=== PATIENT | female | born 1955 | race Caucasian/White ===

== ENCOUNTER → 2016-06-28 | Outpatient (CLI) | payer MEDICARE ==
[~2016-06-28] MED LIST: ADVAIR 250/501 EA; ADVAIR 250/501 EA INH; ATOXIMETIN-B1 CAP PO; BUSPAR10 MG PO; CIPRO500 MG PO; CLARITIN10 MG PO; CLEOCIN HCL150 MG PO; EPA FISH OIL1000 MG PO; FLAX OIL1000 MG; FLONASE 0.05% 121 EA; HUMALOG100 U/ML SC; HUMULIN R U-500 U/ML SC; HYDROCODONE BIT1 T11 PO; LORAZEPAM0.5 MG PO; M2 CHROMIUM500 MCG; METFORMIN1000 MG PO; MOTRIN,RUFEN800 MG; MOTRIN800 MG PO; NEURONTIN300 MG PO; PAXIL40 MG PO; PRAVACHOL40 MG PO; RESTORIL15 MG PO; ZIAC 10 MG-6.251 TAB PO; [UNRECOGNIZED DRUG - OTHER] PO
[2016-06-28 10:39] LABS: BASO % 0.4 % (0.0-1.0); EOS # 0.1 10*3/uL (0.0-0.4); EOS % 1.6 % (1.0-4.0); HEMATOCRIT 39.3 % (37.0-47.0); HEMOGLOBIN 13.4 g/dl (12.0-16.0); LYMPH # 1.4 10*3/uL (1.3-4.4); MEAN CELL VOLUME 98.7 fl (81.0-99.0); MEAN CORPUSCULAR HGB 33.7 pg (27.0-31.0); MEAN CORPUSCULAR HGB CONC 34.1 g/dl (33.0-37.0); MEAN PLATELET VOLUME 10.6 fl (9.6-12.3); MONO # 0.5 10*3/uL (0.1-1.0); MONO % 6.8 % (3.0-9.0); NEUT % 70.8 % (47.0-73.0); PLATELET COUNT AUTOMATED 205 10*3/uL (130-400); RED BLOOD COUNT 3.98 10*6/uL (4.10-5.10); RED CELL DISTRI WIDTH 13.7 % (0-14.5); WHITE BLOOD COUNT 7.1 10*3/uL (4.8-10.8)
[2016-06-28 11:05] LABS: HEMOGLOBIN A1c 7.7 % (4.8-5.6)
[2016-06-28 11:15] LABS: ALBUMIN 3.3 gm/dl (3.1-4.5); ALKALINE PHOSPHATASE 73 U/L (45-117); BILIRUBIN, DIRECT < 0.1 mg/dL (0.0-0.2); BILIRUBIN, TOTAL 0.4 mg/dl (0.2-1.0); BUN 15 mg/dl (7-24); CARBON DIOXIDE 29 mmol/L (21-32); CHLORIDE 100 mmol/L (98-107); CHOLESTEROL 179 mg/dL (<200); EST GLOM FILT AFRICAN AMERICAN 51 ml/min; GLUCOSE 185 mg/dL (65-99); HDL CHOLESTEROL 36 mg/dl (40-60); POTASSIUM 3.3 mmol/L (3.5-5.1); SGOT/AST 31 IU/L (3-35); SGPT/ALT 31 U/L (12-78); SODIUM 142 mmol/L (136-145); THYROXINE (T4) TOTAL 10.1 ug/dl (4.8-13.9); TOTAL PROTEIN 7.6 gm/dL (6.4-8.2); TRIGLYCERIDES 512 mg/dl (<150)
== END | disposition home or self-care (01) ==
LOC: LAB 10:19
PROVIDERS: Family Medicine
DX: E11.9 Type 2 diabetes mellitus without complications (principal); E78.00 Pure hypercholesterolemia, unspecified; R53.83 Other fatigue; E55.9 Vitamin D deficiency, unspecified

== ENCOUNTER 2016-08-20 14:29 | Emergency (ER) | payer MEDICARE ==
[~2016-08-20] VITALS: Wt 127.0 kg
[2016-08-20] MEDS ORDERED: POTASSIUM CHLO10 ME4 PO (14:31)
[2016-08-20] MEDS ORDERED: ATENOLOL AND CH1 TAB PO (14:33)
== END 2016-08-20 17:36 | disposition home or self-care (01) ==
LOC: ED 14:29
DX: R60.9 Edema, unspecified (principal); R03.0 Elevated blood-pressure reading, without diagnosis of hypertension; Z79.899 Other long term (current) drug therapy; Z88.1 Allergy status to other antibiotic agents; Z88.8 Allergy status to other drugs, medicaments and biological substances

== ENCOUNTER → 2017-01-05 | Outpatient (CLI) | payer MEDICARE, OTHER ==
[~2017-01-05] MED LIST changes: +ATENOLOL AND CH1 TAB PO; +POTASSIUM CHLO10 ME4 PO
[2017-01-05 11:05] LABS: ALBUMIN 3.3 gm/dl (3.1-4.5); CREATININE 1.24 mg/dL (0.55-1.02); POTASSIUM 3.8 mmol/L (3.5-5.1); TOTAL PROTEIN 7.6 gm/dL (6.4-8.2)
[2017-01-06 10:04] LABS: CREATININE,URINE 60.6 mg/dL (Not Estab.); MICRO ALBUMIN/CRE RATIO 53.6 (0.0-30.0)
== END | disposition home or self-care (01) ==
LOC: LAB 10:19
PROVIDERS: Nurse Practitioner Family
DX: E11.65 Type 2 diabetes mellitus with hyperglycemia (principal); E11.49 Type 2 diabetes mellitus with other diabetic neurological complication; E55.9 Vitamin D deficiency, unspecified

== ENCOUNTER → 2017-03-31 | Outpatient (CLI) | payer MEDICARE ==
[2017-03-31 16:47] LABS: BASO % 0.4 % (0.0-1.0); EOS # 0.1 10*3/uL (0.0-0.4); EOS % 1.3 % (1.0-4.0); HEMATOCRIT 37.4 % (37.0-47.0); HEMOGLOBIN 12.8 g/dl (12.0-16.0); LYMPH # 2.1 10*3/uL (1.3-4.4); LYMPH % 20.4 % (27.0-41.0); MEAN CELL VOLUME 95.9 fl (81.0-99.0); MEAN CORPUSCULAR HGB 32.8 pg (27.0-31.0); MEAN CORPUSCULAR HGB CONC 34.2 g/dl (33.0-37.0); MONO # 0.9 10*3/uL (0.1-1.0); MONO % 8.7 % (3.0-9.0); NEUT % 68.8 % (47.0-73.0); PLATELET COUNT AUTOMATED 207 10*3/uL (130-400); RED CELL DISTRI WIDTH 13.9 % (0-14.5); WHITE BLOOD COUNT 10.1 10*3/uL (4.8-10.8)
== END | disposition home or self-care (01) ==
LOC: LAB 15:55
PROVIDERS: Family Medicine
DX: I51.7 Cardiomegaly (principal); I10 Essential (primary) hypertension; E11.9 Type 2 diabetes mellitus without complications; Z87.891 Personal history of nicotine dependence

== ENCOUNTER 2017-05-22 17:17 | Emergency (ER) | payer MEDICARE, OTHER ==
[~2017-05-22] VITALS: Ht 167.6 cm; Wt 113.4 kg
[2017-05-22] MEDS ORDERED: HYCODAN/HYDROMET5 ML PO (20:06)
[2017-05-22] MEDS ORDERED: ZITHROMAX250 MG PO (20:06)
[2017-05-22] MEDS ORDERED: PROAIR HFA8.5 GM INH (20:06)
== END 2017-05-22 18:53 | disposition home or self-care (01) ==
LOC: ED 17:17
DX: J40 Bronchitis, not specified as acute or chronic (principal); I10 Essential (primary) hypertension; E11.9 Type 2 diabetes mellitus without complications; E78.00 Pure hypercholesterolemia, unspecified; Z88.1 Allergy status to other antibiotic agents; Z79.899 Other long term (current) drug therapy; Z79.4 Long term (current) use of insulin

== ENCOUNTER → 2017-06-22 | Outpatient (CLI) | payer MEDICARE ==
[~2017-06-22] MED LIST changes: +HYCODAN/HYDROMET5 ML PO; +PROAIR HFA8.5 GM INH; +ZITHROMAX250 MG PO
== END | disposition home or self-care (01) ==
LOC: RAD 11:45
DX: M48.061 Spinal stenosis, lumbar region without neurogenic claudication (principal); G95.20 Unspecified cord compression; G89.29 Other chronic pain

== ENCOUNTER 2017-06-30 19:18 | Emergency (ER) | payer MEDICARE ==
[~2017-06-30] VITALS: Ht 180.3 cm; Wt 127.0 kg
[2017-06-30] MEDS ORDERED: CLINDAMYCIN HC300 MG PO (19:40)
[2017-06-30] MEDS ORDERED: Peridex 473 ML473 ML PO (19:40)
== END 2017-06-30 19:47 | disposition home or self-care (01) ==
LOC: ED 19:18
DX: K04.7 Periapical abscess without sinus (principal); Z79.899 Other long term (current) drug therapy; Z79.4 Long term (current) use of insulin; Z88.1 Allergy status to other antibiotic agents; Z88.8 Allergy status to other drugs, medicaments and biological substances

== ENCOUNTER → 2017-10-16 | Outpatient (CLI) | payer MEDICARE, OTHER ==
[~2017-10-16] MED LIST changes: +CLINDAMYCIN HC300 MG PO; +Peridex 473 ML473 ML PO
== END | disposition home or self-care (01) ==
LOC: US 10-09 16:00
DX: N28.89 Other specified disorders of kidney and ureter (principal)

== ENCOUNTER → 2018-01-16 | Outpatient (CLI) | payer MEDICARE, OTHER | END | disposition home or self-care (01) | LOC: MAMMO 12-21 11:00 | DX: Z12.31 Encounter for screening mammogram for malignant neoplasm of breast (principal) ==

== ENCOUNTER 2018-08-09 18:53 | Inpatient (IN) | payer OTHER ==
[~2018-08-09] VITALS: Ht 165.1 cm; Wt 137.1 kg
--- NOTE | ~2018-08-09 | EKG ---
[place], [place] ELECTROCARDIOGRAM REPORT NAME: ARIANNA HESS UNIT #: [id number] ROOM: 424 DOCTOR: LIZ DRAFT REPORT BIRTHDATE: [birth year] [facility] Test Date: 2018-08-10 Test Time: 00:50:13 Pat Name: ARIANNA HESS Department: Room: 424 Gender: F Food Service Clerk: Kiersten Angel : 1955 Requested By: ANDREW TORRES Order Number: [id number] Reading MD: Ha Kelly MD Measurements Intervals [place] Rate: 103 P: 51 KS: 164 QRS: -3 QRSD: 82 T: 89 QT: 369 QTc: 483 Interpretive Statements Sinus tachycardia Minimal ST depression, lateral leads Electronically Signed On 08-13-2018 14:29:27 PDT by Ha Kelly MD CM:EKGRPT:ELECTROCARDIOGRAM REPORT 0050 1429 ANDREW COLON DRAFT REPORT ANDREW TORRES DO
--- NOTE | ~2018-08-09 | EKG ---
[place], [place] ELECTROCARDIOGRAM REPORT NAME: ARIANNA HESS UNIT #: [id number] ROOM: 424 DOCTOR: LIZ DRAFT REPORT BIRTHDATE: [birth year] [facility] Test Date: 2018-08-09 Test Time: 19:04:03 Pat Name: ARIANNA HESS Department: Room: 424 Gender: F Barrel Filler Head: Kiersten Angel : 1955 Requested By: ANDREW TORRES Order Number: [id number] Reading MD: Ha Kelly MD Measurements Intervals [place] Rate: 102 P: 72 GA: 159 QRS: -9 QRSD: 80 T: 96 QT: 353 QTc: 460 Interpretive Statements Sinus tachycardia Low voltage, precordial leads Probable LVH with secondary repol abnrm Electronically Signed On 08-13-2018 14:23:46 PDT by Ha Kelly MD CM:EKGRPT:ELECTROCARDIOGRAM REPORT 1423 ANDREW COLON DRAFT REPORT ANDREW TORRES DO
--- NOTE | ~2018-08-09 | EKG ---
[place], [place] ELECTROCARDIOGRAM REPORT NAME: ARIANNA HESS UNIT #: [id number] ROOM: 424 DOCTOR: LIZ DRAFT REPORT BIRTHDATE: [birth year] [facility] Test Date: 2018-08-09 Test Time: 21:35:33 Pat Name: ARIANNA HESS Department: Room: 424 Gender: F Log Marker: Kiersten Angel : 1955 Requested By: ANDREW TORRES Order Number: [id number] Reading MD: Ha Kelly MD Measurements Intervals [place] Rate: 98 P: 51 [place]: 154 QRS: -8 QRSD: 85 T: 70 QT: 362 QTc: 463 Interpretive Statements Sinus rhythm Low voltage, precordial leads LVH by voltage Baseline wander in lead(s) V4 Electronically Signed On 08-13-2018 14:25:35 PDT by Ha Kelly MD CM:EKGRPT:ELECTROCARDIOGRAM REPORT 34 1425 ANDREW COLON DRAFT REPORT ANDREW TORRES DO
--- NOTE | ~2018-08-09 | CON ---
[place], [place] REPORT OF CONSULTATION NAME: ARIANNA HESS UNIT #: [id number] ROOM: 424 DOCTOR: JENNY MADRID MD BIRTHDATE: [birth year] DOS: 08/10/2018 CARDIOLOGY CONSULT REASON FOR CONSULTATION: Chest pain. HISTORY OF PRESENT ILLNESS: The patient is a 63-year-old patient with history of hypertension, diabetes, morbid obesity, dyslipidemia, came to the Emergency Room for pressure-like sensation in her chest. This pain came at rest, lasted about 2 minutes. There is no radiation. She could not describe much about her chest pain other than like a pressure-like sensation lasted for 2 minutes. No associated symptoms such as nausea, vomiting or diaphoresis. She did have some diarrhea for a few days and also has some foul-smelling urine and burning on urination, but no fever and chills. No PND or orthopnea. No heart palpitations, no dizziness, no syncope. No nausea, vomiting, diarrhea. No bladder symptoms. At the time of examination, the patient is alert and comfortable. Denies any further chest pain, shortness of breath. REVIEW OF SYSTEMS: Review of 10 systems negative except as mentioned above. PAST MEDICAL HISTORY: 1. Hypertension. 2. Diabetes type 2. 3. Dyslipidemia. 4. Morbid obesity. 5. Neuropathy. 6. Insomnia. 7. Depression. PAST SURGICAL HISTORY: History of cholecystectomy and shoulder replacement. SOCIAL HISTORY: The patient does not smoke, does not drink, does not use illicit drugs. FAMILY HISTORY: Father . Mother , had a cervical cancer. ALLERGIES: THE PATIENT IS ALLERGIC TO LEVAQUIN AND BACTRIM. HOME MEDICATIONS: Reviewed. REVIEW OF THE DIAGNOSTIC TESTS: EKG reviewed. CBC, chemistry reviewed. Creatinine of 1.22, magnesium normal. Lipids and TSH noted. The patient has high triglycerides. The cardiac troponins are normal. IMPRESSION: 1. Chest pain, myocardial infarction ruled out. 2. Hypertension. 3. Sinus tachycardia. 4. Diabetes type 2. 5. Morbid obesity. [place], [place] REPORT OF CONSULTATION NAME: ARIANNA HESS UNIT #: [id number] ROOM: 424 DOCTOR: JENNY MADRID MD BIRTHDATE: [birth year] 6. Urinary tract infection. 7. Hypertriglyceridemia. RECOMMENDATIONS: 1. Recommend Lexiscan stress test due to her coronary disease risk factors. The patient declines stress test and she may consider outpatient test. 3. A 2D echo is ordered and pending. 4. Resume her home medication including Coreg and statins. 5. Risk factor modification for diet, exercise, weight loss discussed. 6. If the 2D echo is unremarkable, Cardiology will sign off and she can follow with [facility] if she decides. 7. Watch her blood pressure and heart rates. 8. If the patient is agreeable, I would recommend outpatient Lexiscan stress test. JENNY MADRID MD CM:CONSTR:REPORT OF CONSULTATION 1826 08/28/18 1103 interface
[2018-08-09 18:54] VITALS: BP 146/61
[2018-08-09 19:15] VITALS: BP 144/93
[2018-08-09 19:32] LABS: BASO % 0.1 % (0.0-1.0); EOS # 0.1 10*3/uL (0.0-0.4); EOS % 0.7 % (1.0-4.0); HEMATOCRIT 38.8 % (37.0-47.0); HEMOGLOBIN 12.6 g/dl (12.0-16.0); LYMPH # 1.6 10*3/uL (1.3-4.4); LYMPH % 16.1 % (27.0-41.0); MEAN CELL VOLUME 102.1 fl (81.0-99.0); MEAN CORPUSCULAR HGB 33.2 pg (27.0-31.0); MEAN CORPUSCULAR HGB CONC 32.5 g/dl (33.0-37.0); MEAN PLATELET VOLUME 10.8 fl (9.6-12.3); MONO # 0.8 10*3/uL (0.1-1.0); MONO % 7.9 % (3.0-9.0); NEUT # 7.4 10*3/uL (2.3-7.9); NEUT % 74.8 % (47.0-73.0); PLATELET COUNT AUTOMATED 199 10*3/uL (130-400); RED CELL DISTRI WIDTH 14.5 % (0-14.5)
[2018-08-09 19:50] LABS: ACT PARTIAL THROMBO TIME 23.1 SECONDS (20.0-32.1); INTERNATIONAL NORM RATIO 0.9 (2.0-3.5)
[2018-08-09 19:53] LABS: ALBUMIN 3.1 gm/dl (3.1-4.5); ALKALINE PHOSPHATASE 71 U/L (45-117); BUN 16 mg/dl (7-24); CHLORIDE 107 mmol/L (98-107); CREATININE 1.17 mg/dL (0.55-1.02); POTASSIUM 4.4 mmol/L (3.5-5.1); SGOT/AST 18 IU/L (3-35); SGPT/ALT 24 U/L (12-78); SODIUM 144 mmol/L (136-145); TOTAL PROTEIN 7.2 gm/dL (6.4-8.2)
[2018-08-09 19:54] LABS: TROPONIN I < 0.015 ng/ml (<0.045)
[2018-08-09 20:00] VITALS: BP 116/57
[2018-08-09 20:13] LABS: BILIRUBIN NEGATIVE (NEGATIVE); BLOOD NEGATIVE (NEGATIVE); CLARITY CLEAR (CLEAR); COLOR YELLOW (YELLOW); GLUCOSE NEGATIVE (NEGATIVE); KETONE NEGATIVE (NEGATIVE); LEUKO ESTERASE 2+ (NEGATIVE); NITRITE NEGATIVE (NEGATIVE); PH 6.5 (5.0-9.0); SPECIFIC GRAVITY <= 1.005 (1.005-1.030); UROBILINOGEN 0.2 E.U./dl (0.2-1.0)
[2018-08-09 20:31] LABS: BACTERIA TRACE; WBC 21-30 wbc/hpf (0-5)
[2018-08-09 20:40] VITALS: BP 121/59
[2018-08-09 22:57] VITALS: BP 150/86
--- NOTE | 2018-08-09 22:57 | NUR ---
A 63, admitted to 4E, under the services of TAYLOR Vaca DO with a diagnosis of UTI/CHEST PAIN/LACTIC ACID ACIDOSIS. Chief complaint is WEIRD FEELING IN CHEST. Patient arrived via wheel chair from ER. Monitor applied. Initial assessment completed. Vital signs taken and recorded. TAYLOR VACA DO notified of admission to the unit. Orders received. See assessment for past medical history, medications and allergies. Patient and/or family oriented to unit. visitation policy reviewed. Clothing/patient valuable form completed. FARHEEN WEBER
[2018-08-10] VITALS: BP 149/85
--- NOTE | 2018-08-10 | NUR ---
UNABLE TO UPATE MED REC, PATIENT DOES NOT KNOW HOME MEDICATIONS.
--- NOTE | 2018-08-10 03:48 | NUR ---
MESSAGE LEFT WITH CARDIOLOGY ANSWERING SERVICE.
[2018-08-10 07:58] LABS: BASO % 0.3 % (0.0-1.0); EOS # 0.1 10*3/uL (0.0-0.4); EOS % 0.7 % (1.0-4.0); HEMATOCRIT 38.8 % (37.0-47.0); HEMOGLOBIN 12.5 g/dl (12.0-16.0); LYMPH # 1.9 10*3/uL (1.3-4.4); LYMPH % 27.7 % (27.0-41.0); MEAN CELL VOLUME 101.6 fl (81.0-99.0); MEAN CORPUSCULAR HGB 32.7 pg (27.0-31.0); MEAN CORPUSCULAR HGB CONC 32.2 g/dl (33.0-37.0); MEAN PLATELET VOLUME 10.9 fl (9.6-12.3); MONO # 0.5 10*3/uL (0.1-1.0); MONO % 6.9 % (3.0-9.0); NEUT # 4.5 10*3/uL (2.3-7.9); NEUT % 64.1 % (47.0-73.0); PLATELET COUNT AUTOMATED 195 10*3/uL (130-400); RED BLOOD COUNT 3.82 10*6/uL (4.10-5.10); RED CELL DISTRI WIDTH 14.6 % (0-14.5); WHITE BLOOD COUNT 6.9 10*3/uL (4.8-10.8)
[2018-08-10 08:00] VITALS: BP 162/82
[2018-08-10] MEDS ORDERED: HUMULIN R500 UNIT/1 SQ (08:26)
[2018-08-10 08:44] LABS: VITAMIN D, 25-HYDROXY 46.5 ng/mL (30-100)
--- NOTE | 2018-08-10 09:00 | NUR ---
Plumbing Service Technician in to talk to patient. Patient states lives at home with alone. There are no steps in the home. Physician: santhosh Pharmacy: [facility] health [facility]: [facility] 2 [facility] week Patient's level of ADLs: MINIMAL ASSIST Patient has working utilities: all working DME: rollator walker Follow-up physician's appointment after d/c: will be made by hospitalist nurse director upon discharge Does patient want to access PORTAL?: no Discharge plan discussed with patient, patient lives at home alone, she states she uses a rollator walker for ambulation she is independent in adls, she has [facility] aids that come 2 x a week, she also states she has a weeks worth of meals delivered on Fridays, her insurance company supplies this, patient states she will be going home when able, discussed with her VNA and she declines any services at this time, case mangement will follow. TARAN BARNES
[2018-08-10 09:10] LABS: ALBUMIN 3.2 gm/dl (3.1-4.5); CREATININE 1.22 mg/dL (0.55-1.02); FREE T4 1.1 ng/dl (0.76-1.46); PHOSPHOROUS 3.3 mg/dL (2.5-4.9); THYROID STIM HORMONE (HS) 3.29 uIU/ml (0.358-4.75); TOTAL PROTEIN 7.6 gm/dL (6.4-8.2)
[2018-08-10] MEDS ORDERED: POTASSIUM CHLO20 ME4 PO (10:36)
[2018-08-10] MEDS ORDERED: CARVEDILOL12.5 MG PO (10:36)
[2018-08-10] MEDS ORDERED: TRIAMTERENE & H1 CAP PO (10:36)
[2018-08-10] MEDS ORDERED: PRAVASTATIN SOD80 MG PO (10:37)
[2018-08-10] MEDS ORDERED: DULOXETINE HCL60 MG PO (10:37)
[2018-08-10] MEDS ORDERED: MIRTAZAPINE15 M2 PO (10:37)
[2018-08-10] MEDS ORDERED: VICTOZA 3-PAK6 MG/ML SC (10:37)
--- NOTE | 2018-08-10 10:38 | NUR ---
MEDICATIONS REVIEWED WITH PHARMACY
[2018-08-10 12:00] VITALS: BP 160/82
--- NOTE | 2018-08-10 14:00 | NUR ---
NOTIFIED OF NEED FOR HOME MEDS
--- NOTE | 2018-08-10 15:44 | NUR ---
NOTIFIED AGAIN REHGARDING NEED FOR HOME MEDS
--- NOTE | 2018-08-10 16:40 | NUR ---
NOTIFIED THAT PATIENTS HOME MEDICATION ARE STILL NOT ORDERED, PATIENT UPSET
--- NOTE | 2018-08-10 16:53 | NUR ---
PT LEAVING AMA. ELDA CAMPOSG NARCOTICS AND/OR VICE DETECTIVE NOTIFIED. NOTIFIED.
--- NOTE | 2018-08-10 16:55 | NUR ---
Patient signed out AMA. Patient encouraged to stay and advised of possible consequences of premature discharge. Physician and supervisor erection shop ANDRES notified. Patient instructed what to do regarding care post-departure from the hospital; emergency phone numbers provided. Patent was accompanied by NO ONE. HALLE DE LA CRUZ A
== END 2018-08-10 16:55 | disposition left against medical advice (07) | DRG 690 ==
LOC: ED 18:53 → 4E 21:18 → EDHOLD 21:18 → 4E 22:50
PROVIDERS: Emergency Medicine; Internal Medicine; ADMIT Internal Medicine
DX: N39.0 Urinary tract infection, site not specified (principal); I24.9 Acute ischemic heart disease, unspecified; E87.2 Acidosis; E44.0 Moderate protein-calorie malnutrition; Z68.43 Body mass index [BMI] 50.0-59.9, adult; K21.9 Gastro-esophageal reflux disease without esophagitis; E11.65 Type 2 diabetes mellitus with hyperglycemia; F32.9 Major depressive disorder, single episode, unspecified; E78.5 Hyperlipidemia, unspecified; G47.00 Insomnia, unspecified; E66.01 Morbid (severe) obesity due to excess calories; E78.1 Pure hyperglyceridemia; Z53.21 Procedure and treatment not carried out due to patient leaving prior to being seen by health care provider; Z96.619 Presence of unspecified artificial shoulder joint; E11.40 Type 2 diabetes mellitus with diabetic neuropathy, unspecified; I12.9 Hypertensive chronic kidney disease with stage 1 through stage 4 chronic kidney disease, or unspecified chronic kidney disease; N18.3 Chronic kidney disease, stage 3 (moderate); Z80.8 Family history of malignant neoplasm of other organs or systems; Z88.1 Allergy status to other antibiotic agents; Z91.018 Allergy to other foods; Z88.2 Allergy status to sulfonamides; Z79.899 Other long term (current) drug therapy; Z90.49 Acquired absence of other specified parts of digestive tract

== ENCOUNTER 2019-03-02 10:45 | Emergency (ER) | payer OTHER ==
[~2019-03-02] VITALS: Ht 167.6 cm; Wt 133.8 kg
[~2019-03-02 10:45] MED LIST changes: +CARVEDILOL12.5 MG PO; +DULOXETINE HCL60 MG PO; +HUMULIN R500 UNIT/1 SQ; +MIRTAZAPINE15 M2 PO; +POTASSIUM CHLO20 ME4 PO; +PRAVASTATIN SOD80 MG PO; +TRIAMTERENE & H1 CAP PO; +VICTOZA 3-PAK6 MG/ML SC
== END 2019-03-02 12:05 | disposition home or self-care (01) ==
LOC: ED 10:45
DX: S63.501A Unspecified sprain of right wrist, initial encounter (principal); Z79.899 Other long term (current) drug therapy; Z88.8 Allergy status to other drugs, medicaments and biological substances; Z88.2 Allergy status to sulfonamides; Z91.018 Allergy to other foods; W01.0XXA Fall on same level from slipping, tripping and stumbling without subsequent striking against object, initial encounter; Y93.89 Activity, other specified; Y92.89 Other specified places as the place of occurrence of the external cause; Y99.8 Other external cause status

== ENCOUNTER → 2020-11-02 | Outpatient (CLI) | payer OTHER | END | disposition home or self-care (01) | LOC: RAD 01:01 → MAMMO 09:30 | PROVIDERS: ATTEND Nurse Practitioner Women's Health | DX: Z12.31 Encounter for screening mammogram for malignant neoplasm of breast (principal); N64.89 Other specified disorders of breast; M85.851 Other specified disorders of bone density and structure, right thigh; Z78.0 Asymptomatic menopausal state ==

== ENCOUNTER → 2021-06-10 | Outpatient (CLI) | payer OTHER ==
[~2021-06-10] MED LIST changes: +DECADRON6 M1 PO; +FOLIC ACID PO; +MELATONIN10 M3 PO; +NIACIN50 M1 PO; +OMNICEF300 MG PO; +VITAMIN D PO; +ZINC PO
== END | disposition home or self-care (01) ==
LOC: CARD 13:52
PROVIDERS: ATTEND Nurse Practitioner Family
DX: I49.3 Ventricular premature depolarization (principal); R94.31 Abnormal electrocardiogram [ECG] [EKG]; E11.42 Type 2 diabetes mellitus with diabetic polyneuropathy; E44.0 Moderate protein-calorie malnutrition; N17.0 Acute kidney failure with tubular necrosis; R55 Syncope and collapse; I10 Essential (primary) hypertension

== ENCOUNTER → 2021-06-22 | Outpatient (CLI) | payer OTHER ==
[~2021-06-22] MED LIST changes: +HUMALOG100 UNIT/1 SC; +LANTUS SOL100 UNIT/1 SC; +TRIAMTERENE-HC1 EACH PO; +ZIOPTAN 0.00151 EACH OP
== END | disposition home or self-care (01) ==
LOC: CT 10:47
PROVIDERS: ATTEND Nurse Practitioner Family
DX: I25.10 Atherosclerotic heart disease of native coronary artery without angina pectoris (principal); R93.89 Abnormal findings on diagnostic imaging of other specified body structures; D17.71 Benign lipomatous neoplasm of kidney

== ENCOUNTER 2021-06-30 14:59 | Inpatient (IN) | payer OTHER ==
[~2021-06-30] VITALS: Ht 165.1 cm; Wt 116.3 kg
[~2021-06-30 14:59] MED LIST changes: -HUMALOG100 UNIT/1 SC; -LANTUS SOL100 UNIT/1 SC; -TRIAMTERENE-HC1 EACH PO; -ZIOPTAN 0.00151 EACH OP
[2021-06-30 15:32] VITALS: BP 91/62
[2021-06-30 16:34] LABS: BASO % 0.3 % (0.0-1.0); EOS # 0.1 10*3/uL (0.0-0.4); EOS % 0.8 % (1.0-4.0); HEMATOCRIT 28.9 % (37.0-47.0); LYMPH # 1.2 10*3/uL (1.3-4.4); LYMPH % 13.4 % (27.0-41.0); MEAN CORPUSCULAR HGB 27.7 pg (27.0-31.0); MEAN CORPUSCULAR HGB CONC 30.1 g/dl (33.0-37.0); MEAN PLATELET VOLUME 10.3 fl (9.6-12.3); MONO # 0.8 10*3/uL (0.1-1.0); MONO % 9.5 % (3.0-9.0); NEUT # 6.7 10*3/uL (2.3-7.9); NEUT % 75.5 % (47.0-73.0); PLATELET COUNT AUTOMATED 350 10*3/uL (130-400); RED BLOOD COUNT 3.14 10*6/uL (4.10-5.10); RED CELL DISTRI WIDTH 15.7 % (0-14.5); WHITE BLOOD COUNT 8.9 10*3/uL (4.8-10.8)
[2021-06-30 16:49] LABS: CREATININE 1.23 mg/dL (0.55-1.02); POTASSIUM 4.2 mmol/L (3.5-5.1); TOTAL PROTEIN 7.7 gm/dL (6.4-8.2)
[2021-06-30 18:50] VITALS: BP 100/41
[2021-06-30 19:33] LABS: BILIRUBIN Negative (Negative); BLOOD Negative (Negative); CLARITY Cloudy (Clear); COLOR Yellow (Yellow); GLUCOSE Negative (Negative); KETONE Negative (Negative); LEUKO ESTERASE 3+ (Negative); NITRITE Positive (Negative); PH 7.5 (4.5-8.0); SPECIFIC GRAVITY 1.015 (1.001-1.030)
[2021-06-30 19:51] LABS: BACTERIA 4+
[2021-06-30 19:52] LABS: WBC 21-30 wbc/hpf (0-5)
[2021-06-30 21:15] VITALS: BP 106/44
[2021-06-30] MEDS ORDERED: HUMALOG100 UNIT/1 SC (21:28)
[2021-06-30] MEDS ORDERED: LANTUS SOL100 UNIT/1 SC (21:29)
[2021-06-30] MEDS ORDERED: TRIAMTERENE-HC1 EACH PO (21:30)
[2021-06-30] MEDS ORDERED: ZIOPTAN 0.00151 EACH OP (21:31)
[2021-07-01] VITALS: BP 98/42
[2021-07-01 02:15] VITALS: BP 102/50
[2021-07-01 06:42] LABS: BASO % 0.3 % (0.0-1.0); EOS # 0.1 10*3/uL (0.0-0.4); EOS % 0.9 % (1.0-4.0); HEMATOCRIT 27.3 % (37.0-47.0); LYMPH % 11.2 % (27.0-41.0); MEAN CELL VOLUME 92.2 fl (81.0-99.0); MEAN CORPUSCULAR HGB 28.4 pg (27.0-31.0); MEAN CORPUSCULAR HGB CONC 30.8 g/dl (33.0-37.0); MEAN PLATELET VOLUME 10.1 fl (9.6-12.3); MONO # 0.8 10*3/uL (0.1-1.0); MONO % 8.6 % (3.0-9.0); NEUT # 7.3 10*3/uL (2.3-7.9); NEUT % 78.5 % (47.0-73.0); PLATELET COUNT AUTOMATED 321 10*3/uL (130-400); RED BLOOD COUNT 2.96 10*6/uL (4.10-5.10); RED CELL DISTRI WIDTH 15.5 % (0-14.5); WHITE BLOOD COUNT 9.3 10*3/uL (4.8-10.8)
[2021-07-01 06:58] LABS: CREATININE 1.16 mg/dL (0.55-1.02); FREE T4 1.17 ng/dl (0.76-1.46); POTASSIUM 3.4 mmol/L (3.5-5.1); TOTAL PROTEIN 7.2 gm/dL (6.4-8.2)
[2021-07-01 07:03] LABS: THYROID STIM HORMONE (HS) 1.06 uIU/ml (0.358-4.75)
[2021-07-01 08:00] VITALS: BP 118/98
[2021-07-01 12:00] VITALS: BP 112/56
[2021-07-01 16:00] VITALS: BP 132/61
[2021-07-01 20:00] VITALS: BP 99/45
[2021-07-02] VITALS: BP 110/36
[2021-07-02 05:51] LABS: CREATININE 1.15 mg/dL (0.55-1.02); POTASSIUM 3.3 mmol/L (3.5-5.1); TOTAL PROTEIN 6.8 gm/dL (6.4-8.2)
[2021-07-02 06:27] VITALS: BP 118/44
[2021-07-02 06:50] LABS: BASO % 0.2 % (0.0-1.0); EOS # 0.1 10*3/uL (0.0-0.4); EOS % 0.8 % (1.0-4.0); LYMPH # 0.9 10*3/uL (1.3-4.4); LYMPH % 9.9 % (27.0-41.0); MEAN CORPUSCULAR HGB 28.1 pg (27.0-31.0); MEAN PLATELET VOLUME 10.4 fl (9.6-12.3); MONO # 0.7 10*3/uL (0.1-1.0); MONO % 8.3 % (3.0-9.0); NEUT # 7.1 10*3/uL (2.3-7.9); NEUT % 80.3 % (47.0-73.0); PLATELET COUNT AUTOMATED 316 10*3/uL (130-400); RED BLOOD COUNT 2.88 10*6/uL (4.10-5.10); RED CELL DISTRI WIDTH 15.8 % (0-14.5); WHITE BLOOD COUNT 8.8 10*3/uL (4.8-10.8)
[2021-07-02 06:53] LABS: MEAN CELL VOLUME 93.8 fl (81.0-99.0)
[2021-07-02 12:00] VITALS: BP 121/68
[2021-07-02 16:00] VITALS: BP 104/50
[2021-07-03] VITALS: BP 100/58
[2021-07-03 06:10] LABS: BASO % 0.3 % (0.0-1.0); EOS # 0.1 10*3/uL (0.0-0.4); EOS % 0.8 % (1.0-4.0); HEMATOCRIT 28.1 % (37.0-47.0); LYMPH # 0.7 10*3/uL (1.3-4.4); LYMPH % 6.7 % (27.0-41.0); MEAN CELL VOLUME 94.9 fl (81.0-99.0); MEAN CORPUSCULAR HGB 27.7 pg (27.0-31.0); MEAN CORPUSCULAR HGB CONC 29.2 g/dl (33.0-37.0); MEAN PLATELET VOLUME 10.4 fl (9.6-12.3); MONO # 0.7 10*3/uL (0.1-1.0); MONO % 6.5 % (3.0-9.0); NEUT # 8.5 10*3/uL (2.3-7.9); NEUT % 85.2 % (47.0-73.0); PLATELET COUNT AUTOMATED 329 10*3/uL (130-400); RED BLOOD COUNT 2.96 10*6/uL (4.10-5.10); RED CELL DISTRI WIDTH 15.5 % (0-14.5)
[2021-07-03 06:12] LABS: BUN 8 mg/dl (7-24); CHLORIDE 109 mmol/L (98-107); CREATININE 1.05 mg/dL (0.55-1.02); POTASSIUM 3.6 mmol/L (3.5-5.1); SODIUM 139 mmol/L (136-145)
[2021-07-03 08:00] VITALS: BP 142/72
[2021-07-03 12:00] VITALS: BP 112/50
[2021-07-03 16:00] VITALS: BP 142/69
[2021-07-03 19:59] VITALS: BP 121/44
[2021-07-04] VITALS: BP 105/59
[2021-07-04 06:00] LABS: BUN 8 mg/dl (7-24); CHLORIDE 111 mmol/L (98-107); POTASSIUM 3.2 mmol/L (3.5-5.1); SODIUM 140 mmol/L (136-145)
[2021-07-04 06:17] LABS: BASO % 0.2 % (0.0-1.0); EOS # 0.1 10*3/uL (0.0-0.4); EOS % 1.2 % (1.0-4.0); HEMATOCRIT 29.2 % (37.0-47.0); LYMPH # 0.8 10*3/uL (1.3-4.4); MEAN CELL VOLUME 93.9 fl (81.0-99.0); MEAN CORPUSCULAR HGB 28.3 pg (27.0-31.0); MEAN CORPUSCULAR HGB CONC 30.1 g/dl (33.0-37.0); MONO # 0.6 10*3/uL (0.1-1.0); MONO % 6.9 % (3.0-9.0); NEUT # 6.6 10*3/uL (2.3-7.9); PLATELET COUNT AUTOMATED 334 10*3/uL (130-400); RED BLOOD COUNT 3.11 10*6/uL (4.10-5.10); RED CELL DISTRI WIDTH 15.7 % (0-14.5); WHITE BLOOD COUNT 8.1 10*3/uL (4.8-10.8)
[2021-07-04 08:00] VITALS: BP 137/86
[2021-07-04 12:00] VITALS: BP 108/56
[2021-07-04 16:00] VITALS: BP 126/62
[2021-07-04 20:00] VITALS: BP 149/62
[2021-07-05] VITALS (9 sets, daily range): BP systolic 126–151; BP diastolic 51–94
[2021-07-05 06:15] LABS: BUN 5 mg/dl (7-24); CHLORIDE 109 mmol/L (98-107); POTASSIUM 3.7 mmol/L (3.5-5.1); SODIUM 138 mmol/L (136-145)
[2021-07-05 06:16] LABS: CREATININE 0.98 mg/dL (0.55-1.02)
[2021-07-05 06:40] LABS: BASO % 0.3 % (0.0-1.0); EOS # 0.1 10*3/uL (0.0-0.4); HEMATOCRIT 32.4 % (37.0-47.0); LYMPH # 0.9 10*3/uL (1.3-4.4); LYMPH % 9.4 % (27.0-41.0); MEAN CELL VOLUME 95.9 fl (81.0-99.0); MEAN CORPUSCULAR HGB 27.8 pg (27.0-31.0); MONO # 0.6 10*3/uL (0.1-1.0); MONO % 5.9 % (3.0-9.0); NEUT # 7.6 10*3/uL (2.3-7.9); NEUT % 82.3 % (47.0-73.0); PLATELET COUNT AUTOMATED 404 10*3/uL (130-400); RED BLOOD COUNT 3.38 10*6/uL (4.10-5.10); WHITE BLOOD COUNT 9.3 10*3/uL (4.8-10.8)
[2021-07-06] VITALS: BP 113/67
[2021-07-06 06:10] LABS: HEMATOCRIT 31.4 % (37.0-47.0); MEAN CELL VOLUME 94.9 fl (81.0-99.0); MEAN CORPUSCULAR HGB 28.1 pg (27.0-31.0); MEAN CORPUSCULAR HGB CONC 29.6 g/dl (33.0-37.0); PLATELET COUNT AUTOMATED 448 10*3/uL (130-400); RED BLOOD COUNT 3.31 10*6/uL (4.10-5.10); RED CELL DISTRI WIDTH 16.2 % (0-14.5)
[2021-07-06 06:11] LABS: CREATININE 1.2 mg/dL (0.55-1.02); POTASSIUM 4.1 mmol/L (3.5-5.1)
[2021-07-06 06:19] LABS: MANUAL DIFF REFLEX YES
[2021-07-06 06:50] LABS: BURR CELLS FEW; PLATELET SUFFICIENCY HIGH (NORMAL); POLYCHROMASIA SLIGHT; SCHISTOCYTES FEW; TOTAL CELLS COUNTED 100 #CELLS
[2021-07-06 06:51] LABS: OVALOCYTES FEW
[2021-07-06 08:00] VITALS: BP 122/68
[2021-07-06 11:16] LABS: CREATININE 1.3 mg/dL (0.55-1.02)
[2021-07-06 12:00] VITALS: BP 112/67
[2021-07-06 16:00] VITALS: BP 111/54
[2021-07-06 16:39] LABS: CREATININE 1.35 mg/dL (0.55-1.02); POTASSIUM 3.5 mmol/L (3.5-5.1)
[2021-07-06 20:00] VITALS: BP 132/63
[2021-07-06 21:36] LABS: CREATININE 1.2 mg/dL (0.55-1.02); POTASSIUM 3.3 mmol/L (3.5-5.1)
[2021-07-07] VITALS (15 sets, daily range): BP systolic 100–118; BP diastolic 44–63
[2021-07-07 06:07] LABS: BUN 8 mg/dl (7-24); CHLORIDE 118 mmol/L (98-107); CREATININE 0.77 mg/dL (0.55-1.02); POTASSIUM 2.7 mmol/L (3.5-5.1); SODIUM 143 mmol/L (136-145)
[2021-07-07 06:31] LABS: HEMATOCRIT 21.6 % (37.0-47.0); MEAN CORPUSCULAR HGB 28.4 pg (27.0-31.0); MEAN CORPUSCULAR HGB CONC 29.6 g/dl (33.0-37.0); MEAN PLATELET VOLUME 10.1 fl (9.6-12.3); RED BLOOD COUNT 2.25 10*6/uL (4.10-5.10); RED CELL DISTRI WIDTH 16.5 % (0-14.5); WHITE BLOOD COUNT 10.7 10*3/uL (4.8-10.8)
[2021-07-07 06:36] LABS: MANUAL DIFF REFLEX YES; PLATELET COUNT AUTOMATED 261 10*3/uL (130-400)
[2021-07-07 06:57] LABS: PLATELET SUFFICIENCY NORMAL (NORMAL); TOTAL CELLS COUNTED 100 #CELLS
[2021-07-07 14:57] LABS: BASO % 0.2 % (0.0-1.0); EOS # 0.1 10*3/uL (0.0-0.4); EOS % 0.9 % (1.0-4.0); HEMATOCRIT 31.9 % (37.0-47.0); LYMPH # 1.3 10*3/uL (1.3-4.4); LYMPH % 9.1 % (27.0-41.0); MEAN CELL VOLUME 93.5 fl (81.0-99.0); MEAN CORPUSCULAR HGB 28.2 pg (27.0-31.0); MEAN CORPUSCULAR HGB CONC 30.1 g/dl (33.0-37.0); MEAN PLATELET VOLUME 9.8 fl (9.6-12.3); MONO # 0.8 10*3/uL (0.1-1.0); MONO % 5.4 % (3.0-9.0); NEUT # 11.7 10*3/uL (2.3-7.9); NEUT % 83.5 % (47.0-73.0); RED BLOOD COUNT 3.41 10*6/uL (4.10-5.10); RED CELL DISTRI WIDTH 16.4 % (0-14.5)
[2021-07-07 15:27] LABS: PLATELET COUNT AUTOMATED 349 10*3/uL (130-400)
[2021-07-07 17:44] LABS: CREATININE 1.2 mg/dL (0.55-1.02); TOTAL PROTEIN 6.2 gm/dL (6.4-8.2)
[2021-07-07 17:48] LABS: POTASSIUM 4.4 mmol/L (3.5-5.1)
[2021-07-08] VITALS (8 sets, daily range): BP systolic 110–147; BP diastolic 56–86
[2021-07-08 06:39] LABS: BASO % 0.3 % (0.0-1.0); EOS # 0.2 10*3/uL (0.0-0.4); EOS % 1.8 % (1.0-4.0); HEMATOCRIT 31.4 % (37.0-47.0); LYMPH # 1.3 10*3/uL (1.3-4.4); LYMPH % 10.7 % (27.0-41.0); MEAN CORPUSCULAR HGB 28.7 pg (27.0-31.0); MEAN CORPUSCULAR HGB CONC 30.6 g/dl (33.0-37.0); MEAN PLATELET VOLUME 9.9 fl (9.6-12.3); MONO # 0.8 10*3/uL (0.1-1.0); MONO % 6.9 % (3.0-9.0); NEUT # 9.4 10*3/uL (2.3-7.9); NEUT % 78.6 % (47.0-73.0); PLATELET COUNT AUTOMATED 339 10*3/uL (130-400); RED BLOOD COUNT 3.34 10*6/uL (4.10-5.10); RED CELL DISTRI WIDTH 16.9 % (0-14.5); WHITE BLOOD COUNT 11.9 10*3/uL (4.8-10.8)
[2021-07-08 07:08] LABS: CREATININE 1.11 mg/dL (0.55-1.02)
[2021-07-09] VITALS: BP 130/73
[2021-07-09 06:34] LABS: BASO % 0.4 % (0.0-1.0); EOS # 0.2 10*3/uL (0.0-0.4); EOS % 1.9 % (1.0-4.0); HEMATOCRIT 33.6 % (37.0-47.0); LYMPH % 9.2 % (27.0-41.0); MEAN CELL VOLUME 93.6 fl (81.0-99.0); MEAN CORPUSCULAR HGB 28.4 pg (27.0-31.0); MEAN CORPUSCULAR HGB CONC 30.4 g/dl (33.0-37.0); MEAN PLATELET VOLUME 10.2 fl (9.6-12.3); MONO # 0.7 10*3/uL (0.1-1.0); MONO % 6.5 % (3.0-9.0); NEUT # 9.1 10*3/uL (2.3-7.9); NEUT % 80.8 % (47.0-73.0); PLATELET COUNT AUTOMATED 338 10*3/uL (130-400); RED BLOOD COUNT 3.59 10*6/uL (4.10-5.10); RED CELL DISTRI WIDTH 17.2 % (0-14.5); WHITE BLOOD COUNT 11.2 10*3/uL (4.8-10.8)
[2021-07-09 06:51] LABS: BUN 8 mg/dl (7-24); CHLORIDE 109 mmol/L (98-107); CREATININE 0.82 mg/dL (0.55-1.02); POTASSIUM 3.8 mmol/L (3.5-5.1); SODIUM 140 mmol/L (136-145)
[2021-07-09 12:00] VITALS: BP 124/77
[2021-07-09] MEDS ORDERED: ZOSYN 3.373.375 GM/1 IV (12:29)
== END 2021-07-09 16:26 | disposition home health service (06) | DRG 329 ==
LOC: ED 14:59 → 4E 19:20 → EDHOLD 19:20 → 4E 20:37
PROVIDERS: Emergency Medicine; Internal Medicine; Student in an Organized Health Care Education/Training Program; Surgery; ADMIT Internal Medicine; ATTEND Internal Medicine
PROC: 0DBN0ZZ Excision of Sigmoid Colon, Open Approach (ICD-10-PCS; principal; 2021-07-05)
PROC: 0DSN0ZZ Reposition Sigmoid Colon, Open Approach (ICD-10-PCS; 2021-07-05)
PROC: 0DJD4ZZ Inspection of Lower Intestinal Tract, Percutaneous Endoscopic Approach (ICD-10-PCS; 2021-07-05)
PROC: 3E0T3BZ Introduction of Anesthetic Agent into Peripheral Nerves and Plexi, Percutaneous Approach (ICD-10-PCS; 2021-07-05)
PROC: 3E0T33Z Introduction of Anti-inflammatory into Peripheral Nerves and Plexi, Percutaneous Approach (ICD-10-PCS; 2021-07-05)
PROC: 30233N1 Transfusion of Nonautologous Red Blood Cells into Peripheral Vein, Percutaneous Approach (ICD-10-PCS; 2021-07-07)
PROC: 0HQ7XZZ Repair Abdomen Skin, External Approach (ICD-10-PCS; 2021-07-08)
PROC: 02HV33Z Insertion of Infusion Device into Superior Vena Cava, Percutaneous Approach (ICD-10-PCS; 2021-07-08)
DX: K57.20 Diverticulitis of large intestine with perforation and abscess without bleeding (principal); N17.0 Acute kidney failure with tubular necrosis; E43 Unspecified severe protein-calorie malnutrition; N39.0 Urinary tract infection, site not specified; N32.1 Vesicointestinal fistula; Z68.41 Body mass index [BMI] 40.0-44.9, adult; Z20.822 Contact with and (suspected) exposure to COVID-19; D64.9 Anemia, unspecified; I95.9 Hypotension, unspecified; E11.65 Type 2 diabetes mellitus with hyperglycemia; I10 Essential (primary) hypertension; F32.A Depression, unspecified; K59.00 Constipation, unspecified; E66.01 Morbid (severe) obesity due to excess calories; E11.42 Type 2 diabetes mellitus with diabetic polyneuropathy; E78.5 Hyperlipidemia, unspecified; G47.00 Insomnia, unspecified; Z79.4 Long term (current) use of insulin; Z79.899 Other long term (current) drug therapy; Z88.2 Allergy status to sulfonamides; Z88.1 Allergy status to other antibiotic agents; Z88.8 Allergy status to other drugs, medicaments and biological substances; Z90.49 Acquired absence of other specified parts of digestive tract; Z53.31 Laparoscopic surgical procedure converted to open procedure

== ENCOUNTER → 2021-07-22 | Outpatient (CLI) | payer OTHER ==
[~2021-07-22] MED LIST changes: +HUMALOG100 UNIT/1 SC; +LANTUS SOL100 UNIT/1 SC; +TRIAMTERENE-HC1 EACH PO; +ZIOPTAN 0.00151 EACH OP; +ZOSYN 3.373.375 GM/1 IV
[2021-07-22 09:33] LABS: BASO % 0.4 % (0.0-1.0); EOS # 0.2 10*3/uL (0.0-0.4); EOS % 1.8 % (1.0-4.0); LYMPH # 0.9 10*3/uL (1.3-4.4); LYMPH % 9.3 % (27.0-41.0); MEAN CELL VOLUME 94.2 fl (81.0-99.0); MEAN CORPUSCULAR HGB 28.6 pg (27.0-31.0); MEAN CORPUSCULAR HGB CONC 30.3 g/dl (33.0-37.0); MEAN PLATELET VOLUME 9.8 fl (9.6-12.3); MONO # 0.7 10*3/uL (0.1-1.0); MONO % 7.4 % (3.0-9.0); NEUT # 8.1 10*3/uL (2.3-7.9); NEUT % 80.6 % (47.0-73.0); PLATELET COUNT AUTOMATED 401 10*3/uL (130-400); RED BLOOD COUNT 3.29 10*6/uL (4.10-5.10)
[2021-07-22 09:50] LABS: CREATININE 1.12 mg/dL (0.55-1.02); POTASSIUM 4.4 mmol/L (3.5-5.1); TOTAL PROTEIN 7.6 gm/dL (6.4-8.2)
== END | disposition home or self-care (01) ==
LOC: LAB 09:02
PROVIDERS: ATTEND Nurse Practitioner
DX: D64.9 Anemia, unspecified (principal)

== ENCOUNTER → 2021-12-01 | Outpatient (CLI) | payer MEDICAID ==
[2021-12-01 13:37] LABS: BASO # 0.1 10*3/uL (0.0-0.1); BASO % 0.8 % (0.0-1.0); EOS # 0.2 10*3/uL (0.0-0.4); EOS % 3.1 % (1.0-4.0); HEMATOCRIT 41.8 % (37.0-47.0); LYMPH # 1.3 10*3/uL (1.3-4.4); LYMPH % 18.6 % (27.0-41.0); MEAN CELL VOLUME 97.7 fl (81.0-99.0); MEAN CORPUSCULAR HGB 32.5 pg (27.0-31.0); MEAN CORPUSCULAR HGB CONC 33.3 g/dl (33.0-37.0); MEAN PLATELET VOLUME 10.8 fl (9.6-12.3); MONO # 0.5 10*3/uL (0.1-1.0); MONO % 7.4 % (3.0-9.0); NEUT % 69.8 % (47.0-73.0); PLATELET COUNT AUTOMATED 209 10*3/uL (130-400); RED BLOOD COUNT 4.28 10*6/uL (4.10-5.10); RED CELL DISTRI WIDTH 13.7 % (0-14.5); WHITE BLOOD COUNT 7.2 10*3/uL (4.8-10.8)
[2021-12-01 13:52] LABS: CREATININE 1.16 mg/dL (0.55-1.02); POTASSIUM 4.2 mmol/L (3.5-5.1); TOTAL PROTEIN 7.9 gm/dL (6.4-8.2)
== END | disposition home or self-care (01) ==
LOC: LAB 13:11
PROVIDERS: ATTEND Nurse Practitioner Family
DX: N17.0 Acute kidney failure with tubular necrosis (principal); D64.9 Anemia, unspecified; R73.9 Hyperglycemia, unspecified

== ENCOUNTER → 2022-02-07 | Day surgery (SDC) | payer OTHER ==
[~2022-02-07] VITALS: Ht 167.6 cm; Wt 117.9 kg
[2022-02-07 08:30] VITALS: BP 136/71
[2022-02-07 09:40] VITALS: BP 152/87
[2022-02-07 09:48] VITALS: BP 132/81
[2022-02-07 09:55] VITALS: BP 149/86
== END | disposition home or self-care (01) ==
LOC: SDC 02-03 11:00
PROVIDERS: ATTEND Surgery
DX: Z09 Encounter for follow-up examination after completed treatment for conditions other than malignant neoplasm (principal); D12.3 Benign neoplasm of transverse colon; K57.92 Diverticulitis of intestine, part unspecified, without perforation or abscess without bleeding; F32.9 Major depressive disorder, single episode, unspecified; E78.00 Pure hypercholesterolemia, unspecified; G47.00 Insomnia, unspecified; E11.40 Type 2 diabetes mellitus with diabetic neuropathy, unspecified; F41.9 Anxiety disorder, unspecified; I12.9 Hypertensive chronic kidney disease with stage 1 through stage 4 chronic kidney disease, or unspecified chronic kidney disease; E11.22 Type 2 diabetes mellitus with diabetic chronic kidney disease; N18.30 Chronic kidney disease, stage 3 unspecified; Z98.890 Other specified postprocedural states; Z79.899 Other long term (current) drug therapy

== ENCOUNTER → 2022-02-16 | Outpatient (CLI) | payer OTHER | END | disposition home or self-care (01) | LOC: RAD 14:57 | PROVIDERS: ATTEND Nurse Practitioner Family | DX: E11.9 Type 2 diabetes mellitus without complications (principal); I10 Essential (primary) hypertension; K63.89 Other specified diseases of intestine; R05.1 Acute cough; R06.2 Wheezing; M47.814 Spondylosis without myelopathy or radiculopathy, thoracic region ==